=== PATIENT | male | born 1965 | race Caucasian/White ===

== ENCOUNTER 2025-06-04 17:57 | Emergency (ER) | payer BC ==
[~2025-06-04] VITALS: Ht 172.7 cm; Wt 117.9 kg
[2025-06-04] MEDS ORDERED: Ondansetron Hydrochloride 4 MG TAB PO ONE (18:25)
[2025-06-04] MEDS ORDERED: MELOXICAM15 MG PO (19:49)
[2025-06-05] MEDS ORDERED: METHOCARBAMOL750 M1 PO (11:37)
[2025-06-05] MEDS ORDERED: HYDROCODONE-AC1 EAC1 PO (11:38)
== END 2025-06-04 20:15 | disposition home or self-care (01) ==
LOC: ED 17:57
DX: M25.551 Pain in right hip (principal); R10.31 Right lower quadrant pain; X50.1XXA Overexertion from prolonged static or awkward postures, initial encounter; Y93.89 Activity, other specified; Y92.89 Other specified places as the place of occurrence of the external cause; Y99.8 Other external cause status